=== PATIENT | female | born 1960 | race Caucasian/White ===

== ENCOUNTER 2017-06-01 20:33 | Emergency (ER) | payer MEDICARE ==
[~2017-06-01] VITALS: Ht 167.6 cm; Wt 109.0 kg
[2017-06-01 20:34] VITALS: BP 149/84
[2017-06-01] MEDS ORDERED: ZETI10TA30 PO (20:50)
[2017-06-01] MEDS ORDERED: LISI-538 PO (20:50)
[2017-06-01] MEDS ORDERED: INVO300T PO (20:50)
[2017-06-01] MEDS ORDERED: INSULANT SC (20:50)
[2017-06-01] MEDS ORDERED: CYCL10TA PO (20:50)
[2017-06-01] MEDS ORDERED: METF10004 PO (20:50)
[2017-06-01] MEDS ORDERED: TRAZ1TAB14 PO (20:50)
[2017-06-01] MEDS ORDERED: GABA-283 PO (20:50)
[2017-06-01] MEDS ORDERED: IBUPROFEN 600 MG TAB PO ONE (21:45)
[2017-06-01] MEDS ORDERED: traMADol 50 MG TAB (BULK 4 TAB ED) PO ONE (22:15)
[2017-06-01] MEDS ORDERED: ULTR50TA8 PO (22:18)
[2017-06-01] MEDS ORDERED: traMADol 50 MG TAB PO ONE (22:30)
--- NOTE | 2017-06-02 07:04 | REP ---
Clinical: Trauma. Technique: AP, lateral, bilateral oblique views of the right foot. Findings: Osteopenia, postsurgical and degenerative changes are appreciated. No acute fracture dislocation. No subcutaneous emphysema or radiodense foreign body. Impression: No acute fracture or dislocation. Signed by Osmar Nava MD 06/02/2017 06:56 A
== END 2017-06-01 22:33 | disposition home or self-care (01) ==
LOC: M ED 20:33
DX: S90.31XA Contusion of right foot, initial encounter (principal); X58.XXXA Exposure to other specified factors, initial encounter; Y92.099 Unspecified place in other non-institutional residence as the place of occurrence of the external cause; Y93.9 Activity, unspecified; Y99.9 Unspecified external cause status; E11.9 Type 2 diabetes mellitus without complications; F17.200 Nicotine dependence, unspecified, uncomplicated; Z79.4 Long term (current) use of insulin; Z79.899 Other long term (current) drug therapy; Z88.6 Allergy status to analgesic agent